=== PATIENT | male | born 1980 | race Caucasian/White ===

== ENCOUNTER 2025-08-22 08:57 | Outpatient (CLI) | payer OTHER | END 2025-08-22 08:58 | disposition home or self-care (01) | LOC: CSHSLEEP 08:57 | PROVIDERS: ATTEND Family Medicine | DX: G47.33 Obstructive sleep apnea (adult) (pediatric) (principal); G47.10 Hypersomnia, unspecified; R53.83 Other fatigue; R06.83 Snoring; G47.00 Insomnia, unspecified | CPT/HCPCS: 95800 ==